=== PATIENT | female | born 1945 | race African-American/Black ===

== ENCOUNTER 2016-12-16 17:15 | Observation (INO) | payer OTHER ==
--- NOTE | 2016-12-16 17:26 | PDOC ---
History of Present Illness - General Chief Complaint: Pain Stated Complaint: ABD PAIN Time Seen by Provider: 12/16/16 17:25 History Source: Patient, Care Provider Exam Limitations: Language Barrier - History of Present Illness Initial Comments: 71 year old female with PMH of gastric ulcer, HTN, and Diabetes (non-insulin dependent) presenting with chest pain and abdominal pain for the past week. Patient states that she had a sudden onset left sided sharp chest pain that radiated to her back and was a 6/10 and co-presented with nausea, diaphoresis, and SOB. There is no exertional component to the pain and it relapses and remits without prodrome or noticeable inciting or relieving factors. This pain has been a multiple time per day occurrence since the initial episode. She has no other cardiac history but had what she believes was an echo a few years ago that was grossly normal. Of note, she had an upper endoscopy that was positive for a gastric ulcer for which she is supposed to be on Pepcid but has not taken it over the past two weeks because of some confusion by her PCP in the [place]. She was also recently prescribed Naproxen for some hip pain which she has been taking for the past two weeks. 12/16/16 19:53 Past History - Past Medical History Allergies/Adverse Reactions: Allergies Allergy/AdvReac Type Severity Reaction Status Date / Time No Known Allergies Allergy Verified 12/16/16 17:16 Review of Systems - Review of Systems Constitutional: Yes: Diaphoresis. No: Chills, Fever HEENTM: No: Eye Pain, Blurred Vision, Double Vision Respiratory: Yes: Shortness of Breath. No: Cough, Productive cough Cardiac (ROS): Yes: Chest Pain. No: Edema, Irregular Heart Rate, Lightheadedness ABD/GI: Yes: Constipated, Nausea. No: Diarrhea, Poor Appetite, Vomiting : No: Dysuria, Hematuria, Incontinence Musculoskeletal: No: Back Pain, Joint Pain Integumentary: No: Bruising, Change in Color, Erythema Neurological: No: Headache, Unsteady Gait *Physical Exam - Physical Exam General Appearance: Yes: Nourished, Appropriately Dressed. No: Apparent Distress HEENT: positive: EOMI, MARYAN, Normal ENT Inspection, Normal Voice Neck: positive: Trachea midline, Normal Thyroid, Supple. negative: Tender, Rigid Respiratory/Chest: positive: Lungs Clear, Normal Breath Sounds. negative: Chest Tender, Respiratory Distress, Accessory Muscle Use Cardiovascular: positive: Regular Rhythm, Regular Rate, S1, S2. negative: Edema , Murmur Gastrointestinal/Abdominal: positive: Normal Bowel Sounds, Tender (Mildly tender epigastrium, RUQ, LUQ and mild diffuse pelvic tenderness. ), Flat, Soft. negative: Pulsatile Mass Musculoskeletal: positive: Normal Inspection Extremity: positive: Normal Range of Motion Integumentary: positive: Normal Color, Dry, Warm Neurologic: positive: Fully Oriented, Alert, Normal Mood/Affect, Normal Response Heart Score/ECG Review - History History: Moderately suspicious - Electrocardiogram EKG: Normal - Age Age: >/= 65 - Risk Factors Risk Factors Heart Score: Yes Hx Hypertension, Yes Hx Diabetes Based on the list above the patient has:: 1-2 risk factors - Troponin Troponin: </= normal limit - Score Heart Score - Total: 4 - ECG Intrepretation Rhythm: Regular Rhythm - [place]: Normal ED Treatment Course - LABORATORY CBC & Chemistry Diagram: 12/16/16 18:31 12/16/16 18:31 Medical Decision Making - Medical Decision Making 71 year old female with PMH of gastric ulcer, HTN, and diabetes presenting with chest pain concernign for unstable Angina vs. ACS vs. MSK pain. Given her caridac history and high baseline Heart Score (4) she should be placed on the ACS rule out pathway and at least admitted for observation on a tele unit. We will get CXR, cardiac enzyme, CBC, and CMP with lipase. 12/16/16 20:04 Labs significant for microcytosis, bili 1.2, and negative troponin. EKG was also NSR without signs of ST elevation or other t wave abnormalities. She was signed out to Sharon mccloud PGY2 and she will admit him for tele obs ACS rule out. 12/16/16 20:07 *DC/Admit/Observation/Transfer Diagnosis at time of Disposition: Chest pain in adult - Discharge Dispostion Condition at time of disposition: Improved Admit: Yes - Attestations Physician Attestion: 12/16/16 20:11 I, Dr. Zulema Corrales, attest that this document has been prepared under my direction and personally reviewed by me in its entirety. I further attest, that it accurately reflects all work, treatment, procedures and medical decision -making performed by me.
--- NOTE | 2016-12-16 18:40 | PDOC ---
Attending Attestation - Resident Resident Name: Zulema Corrales - ED Attending Attestation I have performed the following: I have examined & evaluated the patient, The case was reviewed & discussed with the resident, I agree w/resident's findings & plan - HPI HPI: 12/16/16 18:37 c/o few days of chest pain with shortness of breath, episodic at rest also with hx pud with known ulcer, has increased epigastric pain as well no vomiting - Physicial Exam PE: 12/16/16 18:38 nad, ambulatory chest clear heart rr no M or gal abd soft, NT with nl bs extrem nl - Medical Decision Making 12/16/16 18:39 ecg is nsr with no acute st or t wave changes chest pain and epigastric pain in a patient with cardiac risk factors ecg nl exam normal will need rule out as her heart score is 4, moderate risk of adverse coronary event
[2016-12-16 18:46] LABS: BASOPHIL 0.9 % (0-2.0); EOSINOPHIL 0.4 % (0-4.5); MCH 24.7 pg (25.7-33.7); MCHC 31.6 g/dl (32.0-36.0); MEAN CELL VOLUME 78.1 fl (80-96); MEAN PLT VOLUME 8.9 fl (7.5-11.1); PLATELET COUNT 239 K/MM3 (134-434)
[2016-12-16 19:01] LABS: ALBUMIN 4.7 g/dl (3.5-5.0); ALK PHOS 68 U/L (32-92); ANION GAP 7 (8-16); BILIRUBIN,TOTAL 1.2 mg/dl (0.2-1.0); CALCIUM 9.5 mg/dl (8.4-10.2); CO2 27 mmol/L (22-28); CPK 117 IU/L (26-192); CREATININE 0.9 mg/dl (0.6-1.3); GLUCOSE,RANDOM 134 mg/dl (74-106); SGOT/AST 38 U/L (10-42); SGPT/ALT 27 U/L (10-40); TOT PROT 8.6 g/dl (6.4-8.3)
[2016-12-16 19:08] LABS: TROPONIN I (DFP) < 0.03 ng/ml (0.03-0.50)
--- NOTE | 2016-12-16 19:26 | PDOC ---
*Physical Exam - Vital Signs Last Vital Signs Temp Pulse Resp BP Pulse Ox 98.1 F 78 20 141/77 98 12/16/16 17:16 12/16/16 17:16 12/16/16 17:16 12/16/16 17:16 12/16/16 17:16 ED Treatment Course - LABORATORY CBC & Chemistry Diagram: 12/16/16 18:31 12/16/16 18:31 - ADDITIONAL ORDERS Additional order review: Laboratory Results 12/16/16 12/16/16 18:31 18:31 Sodium 139 Potassium 3.8 Chloride 105 Carbon Dioxide 27 Anion Gap 7 L BUN 9 Creatinine 0.9 Creat Clearance w eGFR > 60 Random Glucose 134 H Calcium 9.5 Total Bilirubin 1.2 H AST 38 ALT 27 Alkaline Phosphatase 68 Creatine Kinase 117 Cancelled Troponin I < 0.03 L Cancelled Total Protein 8.6 H Albumin 4.7 Lipase 36 12/16/16 18:31 RBC 5.30 H MCV 78.1 L MCHC 31.6 L RDW 14.0 MPV 8.9 Neutrophils % 55.0 Lymphocytes % 37.3 Monocytes % 6.4 Eosinophils % 0.4 Basophils % 0.9 Progress Note - Progress Note Progress Note: Care of this patient was transferred to id from Dr. Case at [address] Wray' s emergency medicine resident and was being supervised by Dr. Jayant Morton attending.. Patient came in complaining of epigastric pain. Patient has multiple risk factors for acute coronary syndrome. Patient's heart score is 4. Patient had a workup including a cardiogram that showed no acute pathology, a chest x-ray that showed no acute pathology, and labs that were essentially normal including a negative troponin. Patient will be admitted to an inpatient observation bed under the hospitalist service. Discussed with hospitalist and they accepted patient for admission *DC/Admit/Observation/Transfer Diagnosis at time of Disposition: Chest pain in adult - Discharge Dispostion Admit: Yes
[2016-12-16] MEDS ORDERED: MAG HYDROX/AL HYDROX/SIMETH 30 ML UNIT-DOSE CUP ONE (19:38)
[2016-12-16] MEDS ORDERED: ASPIRIN 325 MG TABLET ONE (19:38)
--- NOTE | 2016-12-16 19:41 | HP ---
CHIEF COMPLAINT: Chest Pain, Abdominal Pain PCP: SON: Mark #[phone] HISTORY OF PRESENT ILLNESS: This is a 71 y/o woman with a past medical history of Peptic Ulcer. Who presents to the ED with left sided chest pain and abdominal pain x 4 days. [facility] is [facility] and speaks [facility]. [facility] was used Name- Kirsten, # [id number]. Per childrens [employer] attendant patient reports sharp epigastric pain radiating to her mid sternum. Patient reports having chills, diaphoresis, nausea, SOB headache. Patient reports being treated for Arthritis of hip pain and being placed on Naprosyn BID x 2weeks, without taking her PUD meds. Patient reports being constipated x 3 days, then having a small BM- now resolved. Patient denies fever , dizziness, V/D dysuria. ER course was notable for: (1) Cardiac Enzymes neg x1 (2) EKG- NSR no ST or [facility] (3) Chest Xray- no infiltrate, no effusion Recent Travel: PAST MEDICAL HISTORY: HTN Borderline DM Peptic Ulcer PAST SURGICAL HISTORY: x8 Tubal Ligation Social History: Smoking: Never Alcohol: None Drugs: None Lives with her family Family History: Allergies No Known Allergies Allergy (Verified 12/16/16 17:16) HOME MEDICATIONS: REVIEW OF SYSTEMS CONSTITUTIONAL: Absent: fever, chills, diaphoresis, generalized weakness, malaise, loss of appetite, weight change HEENT: Absent: rhinorrhea, nasal congestion, throat pain, throat swelling, difficulty swallowing, mouth swelling, ear pain, eye pain, visual changes CARDIOVASCULAR: chest pain Absent: syncope, palpitations, irregular heart rate, lightheadedness, peripheral edema RESPIRATORY: Absent: cough, shortness of breath, dyspnea with exertion, orthopnea, wheezing, stridor, hemoptysis GASTROINTESTINAL: abdominal pain, nausea Absent: abdominal distension, nausea, vomiting, diarrhea, constipation, melena, hematochezia GENITOURINARY: Absent: dysuria, frequency, urgency, hesitancy, hematuria, flank pain, genital pain MUSCULOSKELETAL: Absent: myalgia, arthralgia, joint swelling, back pain, neck pain SKIN: Absent: rash, itching, pallor HEMATOLOGIC/IMMUNOLOGIC: Absent: easy bleeding, easy bruising, lymphadenopathy, frequent infections ENDOCRINE: Absent: unexplained weight gain, unexplained weight loss, heat intolerance, cold intolerance NEUROLOGIC: Absent: headache, focal weakness or paresthesias, dizziness, unsteady gait, seizure, mental status changes, bladder or bowel incontinence PSYCHIATRIC: Absent: anxiety, depression, suicidal or homicidal ideation, hallucinations. PHYSICAL EXAMINATION Vital Signs - 24 hr 12/16/16 12/16/16 17:16 19:36 Temperature 98.1 F Pulse Rate 78 Pulse Rate [ 66 Left] Respiratory 20 18 Rate Blood Pressure 141/77 Blood Pressure 138/74 [Right] O2 Sat by Pulse 98 97 Oximetry (%) GENERAL: Awake, alert, and fully oriented, in no acute distress. HEAD: Normal with no signs of trauma. EYES: Pupils equal, round and reactive to light, extraocular movements intact, sclera anicteric, conjunctiva clear. No lid lag. EARS, NOSE, THROAT: Ears normal, nares patent, oropharynx clear without exudates. Dry mucous membranes. NECK: Normal range of motion, supple without lymphadenopathy, JVD, or masses. LUNGS: Breath sounds equal, clear to auscultation bilaterally. No wheezes, and no crackles. No accessory muscle use. HEART: Regular rate and rhythm, normal S1 and S2 without murmur, rub or gallop. CP is reproducible midsternum, L- CW upon palpation ABDOMEN: Soft, + RLQ, LUQ, LMQ tenderness, not distended, normoactive bowel sounds, no guarding, no rebound, no masses. No hepatomegaly or splenomegaly. MUSCULOSKELETAL: Normal range of motion at all joints. No bony deformities or tenderness. No CVA tenderness. UPPER EXTREMITIES: 2+ pulses, warm, well-perfused. No cyanosis. No clubbing. No peripheral edema. LOWER EXTREMITIES: 2+ pulses, warm, well-perfused. No calf tenderness. No peripheral edema. NEUROLOGICAL: Cranial nerves II-XII intact. Normal speech. Gait not observed. PSYCHIATRIC: Cooperative. Good eye contact. Appropriate mood and affect. SKIN: Warm, dry, normal turgor, no rashes or lesions noted, normal capillary refill. Laboratory Results - last 24 hr 12/16/16 12/16/16 12/16/16 18:31 18:31 18:31 WBC 6.0 RBC 5.30 H Hgb 13.1 Hct 41.4 MCV 78.1 L MCH 24.7 L MCHC 31.6 L RDW 14.0 Plt Count 239 MPV 8.9 Neutrophils % 55.0 Lymphocytes % 37.3 Monocytes % 6.4 Eosinophils % 0.4 Basophils % 0.9 Sodium 139 Potassium 3.8 Chloride 105 Carbon Dioxide 27 Anion Gap 7 L BUN 9 Creatinine 0.9 Creat Clearance w eGFR > 60 Random Glucose 134 H Calcium 9.5 Total Bilirubin 1.2 H AST 38 ALT 27 Alkaline Phosphatase 68 Creatine Kinase Cancelled 117 Troponin I Cancelled < 0.03 L Total Protein 8.6 H Albumin 4.7 Lipase 36 ASSESSMENT/PLAN: This is a 71 y/o woman with a PMHx of: HTN, Borderline DM (on Metformin), Peptic Ulcer Disease. Placed in Observation for Chest Pain r/o ACS for further evaluation of their emergent condition. Problem List - Problem (1) Chest pain Assessment/Plan: - r/o ACS vs PUD - HEART Score 4 - EKG reviewed no prior study to compare - Chest Xray reviewed - Troponin I neg x1 - Serial Troponins - Asa given in ED, continue Baby Asa with PPI 2/2 PUD - f/u Cardiology in outpatient - Echo outpatient - Monitor vitals - Repeat CBC, BMP in am Code(s): R07.9 - CHEST PAIN, UNSPECIFIED (2) Peptic ulcer symptoms Assessment/Plan: - Likely secondary to recent NSAID use - Maalox given in ED with some relief - Continue Pepcid - f/u with GI in outpatient - Consider US r/o GB if condition worsens Code(s): R19.8 - OTH SYMPTOMS AND SIGNS INVOLVING THE DGSTV SYS AND ABDOMEN (3) Borderline type 2 diabetes mellitus Assessment/Plan: - Stable - BGMs - ISS - Continue Metformin - HgbA1C in am - Monitor renal function Code(s): R73.03 - PREDIABETES (4) HTN (hypertension) Assessment/Plan: - Controlled - Continue home med - Low Na Diet - Monitor renal function Code(s): I10 - ESSENTIAL (PRIMARY) HYPERTENSION (5) DVT prophylaxis Assessment/Plan: - OOB - SCDs - Consider AC if LOS > 48 hrs Code(s): UBH1774 - Visit type - Emergency Visit Emergency Visit: Yes ED Registration Date: 12/16/16 Care time: The patient presented to the Emergency Department on the above date and was hospitalized for further evaluation of their emergent condition. - New Patient This patient is new to me today: Yes Date on this admission: 12/16/16 - Critical Care Critical Care patient: No
[2016-12-16] MEDS ORDERED: ASPIRIN 325 MG ENTERIC COATED TABLET (FP) PO ONE (19:51)
[2016-12-16] MEDS ORDERED: MAG HYDROX/AL HYDROX/SIMETH 30 ML UNIT-DOSE CUP PO ONE (19:52)
[2016-12-16 21:36] VITALS: BMI 22.6
[2016-12-17 01:49] LABS: TROPONIN I 0.04 ng/ml (0.00-0.05)
[2016-12-17] MEDS: INSULIN SLIDING SCALE (NOVOLOG) 1 VIAL SQ SCH ×2 (06:48→11:59)
[2016-12-17] MEDS ORDERED: metFORMIN HCL 500 MG TABLET (FP) PO SCH (07:00)
[2016-12-17 07:09] VITALS: BP 138/72; PULSE 54; TEMP 98.7
[2016-12-17 08:14] LABS: BASOPHIL 1.1 % (0-2.0)
[2016-12-17 08:18] LABS: ANION GAP 7 (8-16); CALCIUM 9.2 mg/dl (8.4-10.2); CO2 27 mmol/L (22-28); CREATININE 0.7 mg/dl (0.6-1.3); GLUCOSE,RANDOM 87 mg/dl (74-106); MAGNESIUM 2.2 mg/dL (1.8-2.4); PHOSPHOROUS 3.9 mg/dl (2.5-4.6)
[2016-12-17 08:26] LABS: MCHC 31.9 g/dl (32.0-36.0); MEAN CELL VOLUME 78.2 fl (80-96); MEAN PLT VOLUME 9.8 fl (7.5-11.1); PLATELET COUNT 209 K/MM3 (134-434); RDW 14.3 % (11.6-15.6)
[2016-12-17 09:39] LABS: CHOLESTEROL 116 mg/dl
[2016-12-17] MEDS ORDERED: LISINOPRIL 20 MG TABLET (FP) PO SCH (10:00)
[2016-12-17] MEDS ORDERED: PATIENT'S OWN MEDICATION (NON-FORMULARY) (Amlodipine Besylate/Benazepril [Lotrel 10-20 Mg PO SCH (10:00)
[2016-12-17] MEDS ORDERED: HYDROCHLOROTHIAZIDE 12.5 MG CAPSULE (FP) PO SCH (10:00)
[2016-12-17] MEDS ORDERED: RANITIDINE HCL 150 MG TABLET (FP) PO SCH (10:00)
[2016-12-17] MEDS ORDERED: amLODIPine BESYLATE 10 MG TABLET (FP) PO SCH (10:00)
[2016-12-17] MEDS ORDERED: ASPIRIN 81 MG CHEWABLE TABLETS PO SCH (10:00)
--- NOTE | 2016-12-17 12:33 | DS ---
Physical Exam: SUBJECTIVE: Patient seen and examined at bedside. No telemetry events overnight. OBJECTIVE: Vital Signs Period Temp Pulse Resp BP Sys/Tomlinson Pulse Ox Last 24 Hr 98.4 F-98.7 F 54-64 18-18 138-142/72-72 99-99 PHYSICAL EXAM GENERAL: The patient is awake, alert, and fully oriented, in no acute distress. HEAD: Normal with no signs of trauma. EYES: PERRL, extraocular movements intact, sclera anicteric, conjunctiva clear. ENT: Ears normal, nares patent, oropharynx clear without exudates, moist mucous membranes. NECK: Trachea midline, full range of motion, supple. LUNGS: Breath sounds equal, clear to auscultation bilaterally, no wheezes, no crackles, no accessory muscle use. HEART: Regular rate and rhythm, S1, S2 without murmur, rub or gallop. ABDOMEN: Soft, nontender, nondistended, normoactive bowel sounds, no guarding, no rebound, no hepatosplenomegaly, no masses. MUSCULOSKELETAL: Palpable muscle spasms medial to left trapezius. EXTREMITIES: 2+ pulses, warm, well-perfused, no edema. NEUROLOGICAL: Cranial nerves II through XII grossly intact. Normal speech, gait not observed. PSYCH: Normal mood, normal affect. SKIN: Warm, dry, normal turgor, no rashes or lesions noted. LABS Laboratory Results - last 24 hr 12/17/16 12/17/16 12/17/16 00:01 06:00 06:00 WBC 5.0 RBC 4.73 Hgb 11.8 Hct 37.0 MCV 78.2 L MCH 25.0 L MCHC 31.9 L RDW 14.3 Plt Count 209 MPV 9.8 D Neutrophils % 44.0 Lymphocytes % 45.8 H D Monocytes % 8.1 Eosinophils % 1.0 D Basophils % 1.1 Sodium Potassium Chloride Carbon Dioxide Anion Gap BUN Creatinine POC Glucometer Random Glucose Hemoglobin A1c % Calcium Phosphorus Magnesium Creatine Kinase 115 Troponin I 0.04 Triglycerides 88 Cholesterol 116 Total LDL Cholesterol 51 HDL Cholesterol 47 12/17/16 12/17/16 12/17/16 06:00 06:00 06:00 WBC RBC Hgb Hct MCV MCH MCHC RDW Plt Count MPV Neutrophils % Lymphocytes % Monocytes % Eosinophils % Basophils % Sodium 139 Potassium 3.6 Chloride 105 Carbon Dioxide 27 Anion Gap 7 L BUN 11 D Creatinine 0.7 D POC Glucometer Random Glucose 87 D Hemoglobin A1c % 6.8 H Calcium 9.2 Phosphorus 3.9 Magnesium 2.2 Creatine Kinase Troponin I 0.03 Triglycerides Cholesterol Total LDL Cholesterol HDL Cholesterol 12/17/16 12/17/16 06:47 11:29 WBC RBC Hgb Hct MCV MCH MCHC RDW Plt Count MPV Neutrophils % Lymphocytes % Monocytes % Eosinophils % Basophils % Sodium Potassium Chloride Carbon Dioxide Anion Gap BUN Creatinine POC Glucometer 95 93 Random Glucose Hemoglobin A1c % Calcium Phosphorus Magnesium Creatine Kinase Troponin I Triglycerides Cholesterol Total LDL Cholesterol HDL Cholesterol HOSPITAL COURSE: Date of Admission:12/16/16 Date of Discharge: 12/17/16 Minutes to complete discharge: 45 Discharge Summary Reason For Visit: CHEST PAIN Current Active Problems Borderline type 2 diabetes mellitus (Acute) Chest pain (Acute) Chest pain in adult (Acute) DVT prophylaxis (Acute) HTN (hypertension) (Acute) Peptic ulcer disease (Acute) Peptic ulcer symptoms (Acute) Hospital Course: 71 year old female with PMH of gastric ulcer, HTN, and Diabetes (non-insulin dependent) presented with epigastric pain and abdominal pain for the past week. Patient stated that she had a sudden onset left sided sharp chest pain that radiated to her back and was a 6/10 and co-presented with nausea, diaphoresis, and SOB. There was no exertional component to the pain and it relapsed and remits without prodrome or noticeable inciting or relieving factors. This pain had been a multiple time per day occurrence since the initial episode. She has no other cardiac history but had what she believes was an echo a few years ago that was grossly normal. Of note, she had an upper endoscopy that was positive for a gastric ulcer for which she is supposed to be on Pepcid but has not taken it over the past two weeks because of some confusion by her PCP in the [place]. She was also recently prescribed Naproxen for some hip pain which she has been taking for the past two weeks. (1) Chest pain Assessment/Plan: - ACS vs PUD - HEART Score 4 - EKG reviewed NSR with no prior study to compare - Chest Xray reviewed - Troponin I neg x3 - f/u Cardiology as outpatient - Echo as outpatient Code(s): R07.9 - CHEST PAIN, UNSPECIFIED (2) Peptic ulcer symptoms Assessment/Plan: - Likely secondary to recent NSAID use - Continue Pepcid - f/u with GI in outpatient - Avoid NSAID's Code(s): R19.8 - OTH SYMPTOMS AND SIGNS INVOLVING THE DGSTV SYS AND ABDOMEN (3) Borderline type 2 diabetes mellitus Assessment/Plan: - Continue Metformin as outpatient - HgbA1C- 6.8 - Encouraged lifestyle modifications Code(s): R73.03 - PREDIABETES (4) HTN (hypertension) Assessment/Plan: - Continue home medications - Low Na Diet Code(s): I10 - ESSENTIAL (PRIMARY) HYPERTENSION Condition: Improved - Instructions Diet, Activity, Other Instructions: Call Dr. Gonzalez for appointment within the next 48 hours. Your troponin levels were all normal. You have been given a copy of your EKG. Bring this to your doctor at your appointment. Eat a low salt diet that is free of greasy foods, fried foods, fatty foods and alcohol. Keep well hydrated. Return to ER for any chest pain, shortness of breath, nausea, vomiting or any other concerns. Disposition: HOME - Home Medications Comprehensive Discharge Medication List: Ambulatory Orders Amlodipine Besylate/Benazepril [Lotrel 10-20 mg Capsule] 10 - 20 mg PO DAILY 09/27 Famotidine [Pepcid] 40 mg PO DAILY 12/16/16 Hydrochlorothiazide [Hctz -] 12.5 mg PO DAILY 12/16/16 Metformin HCl 500 mg PO BIDAC 12/16/16 Naproxen 500 mg PO BID 12/16/16 This patient is new to me today: Yes Date on this admission: 12/17/16 Emergency Visit: Yes ED Registration Date: 12/16/16 Care time: The patient presented to the Emergency Department on the above date and was hospitalized for further evaluation of their emergent condition. Critical Care patient: No - Discharge Referral Referred to [facility] Med P.C.: No
--- NOTE | 2016-12-18 07:32 | EKG ---
Test Reason : Blood Pressure : / mmHG Vent. Rate : 083 BPM Atrial Rate : 083 BPM P-R Int : 182 ms QRS Dur : 086 ms QT Int : 380 ms P-R-T Axes : 050 014 040 degrees QTc Int : 446 ms NORMAL SINUS RHYTHM NORMAL ECG NO PREVIOUS ECGS AVAILABLE Confirmed by TON CARDENAS MD ([id number]) on 12/18/2016 7:32:09 AM Referred By: CARMEILTA STOREY Confirmed By:TON CARDENAS MD
== END 2016-12-17 13:00 | disposition home or self-care (01) ==
LOC: FER 17:15 → FM/S 20:02
PROVIDERS: ADMIT Internal Medicine; ATTEND Nurse Practitioner Family
DX: R07.9 Chest pain, unspecified (principal); I10 Essential (primary) hypertension; K25.9 Gastric ulcer, unspecified as acute or chronic, without hemorrhage or perforation; R73.03 Prediabetes
CPT/HCPCS: 36415; 71020-TC; 80048; 80053; 80061; 83036; 83690; 83735; 84100; 84484; 85025; 93005; 99283-25; G0378